=== PATIENT | male | born 1960 | race Caucasian/White ===

== ENCOUNTER → 2019-02-05 | Outpatient (CLI) | payer BC, OTHER ==
[2019-02-05 07:16] LABS: HEMATOCRIT 40.3 % (42.0-52.0); MCH 30.8 pg (26.0-34.0); MCHC 34.8 g/dL (28.0-37.0); MCV 88.6 fL (80.0-100.0); RBC 4.55 mil/uL (4.50-6.00); RDW 13.2 % (10.5-14.5); WBC 7.2 thou/uL (4.0-11.0)
[2019-02-05 07:30] LABS: ALBUMIN 3.6 g/dL (3.4-5.0); CALCIUM 9.1 mg/dL (8.5-10.1); CREATININE 0.9 mg/dL (0.7-1.3); POTASSIUM 3.5 mmol/L (3.5-5.1); TOTAL BILIRUBIN 0.5 mg/dL (<0.1-1.0); TOTAL PROTEIN 6.6 g/dL (6.4-8.2)
== END ==
LOC: CAT 06:47
PROVIDERS: Internal Medicine Cardiovascular Disease
DX: I48.91 Unspecified atrial fibrillation (principal); I25.10 Atherosclerotic heart disease of native coronary artery without angina pectoris; M47.814 Spondylosis without myelopathy or radiculopathy, thoracic region; Z90.49 Acquired absence of other specified parts of digestive tract

== ENCOUNTER → 2019-02-16 | Outpatient (CLI) | payer BC, OTHER ==
[~2019-02-16] VITALS: Ht 182.9 cm; Wt 99.8 kg
[~2019-02-16] MED LIST: ACCUNEB SO1.25 MG/1 INH; ADULT ASPIRIN R81 MG PO; CARDIZEM CD120 MG PO; CRESTOR20 MG PO; ELIQUIS5 MG PO; FLOMAX0.4 MG PO; GLUCOSAMINE HC500 MG; LOSARTAN-HCTZ1 EAC1 PO; METFORMIN HCL500 MG PO; OZEMPIC0.25 MG/0. INJECTION; PROAIR HFA8.5 GM INH; REVATIO20 MG PO; SYNTHROID100 MC1 PO; TESTOSTERONE2.5 GM TOP; VITAMIN D35000 UNIT PO
[2019-02-16 07:58] VITALS: BP 106/78
--- NOTE | 2019-02-16 09:20 | TEE ---
[facility] [address] [address] TRANSESOPHAGEAL ECHOCARDIOGRAM Name: DIONNA ORTEGA Room #: REG CL Ana#: [id number] ������������� Admission: 02/16/19 ������������� Attend Phys: Romeo Tierney Discharge: ��� ������������� ��� Date of : 62 Date of Service: 02/16/19 0919 �� Report #: [id number] �������� ��������������������������������������������[id number] THIS REPORT FOR: //name// APPROVED REPORT Study performed: 02/16/2019 08:51:04 EXAM: Transesophageal Echocardiogram Patient Location: Out-Patient Status: routine BSA: 2.22 HR: 55 bpm BP: 100/62 mmHg Rhythm: Atrial Fibrillation Other Information Study Quality: Good Indications Atrial Fibrillation Echo Enhancing Agent Indication: Rule out Shunt Agent(s) / Amount(s) Used: Agitated Saline 6 cc Procedure After obtaining informed consent, patient underwent transesophageal echo in the [employer]. Type of Sedation : Conscious Sedation Sedation was administered by Shira Chance RN. Sedation was achieved intravenously with: Versed (4) Fentanyl (100) Transesophageal probe was inserted and advanced into esophagus without difficulty by Alvino Phelps MD. The GARRET was performed without complications. Throughout the procedure, the blood pressure, pulse oximetry, cardiac rhythm, and rate were monitored. The patient tolerated the procedure without adverse effects. Recovery from conscious sedation was uneventful and vital signs were stable. Left Ventricle The left ventricle is normal size. There is normal LV segmental wall motion. There is normal left ventricular wall thickness. Left ventricular systolic function is normal. LVEF is 55-60%. [facility] [address] [place] [address] TRANSESOPHAGEAL ECHOCARDIOGRAM Name: DIONNA ORTEGA [place] Room #: REG CL [place].#: [id number] ������������� Admission: 02/16/19 ������������� Attend Phys: Romeo Tierney Discharge: ��� ������������� ��� Date of : 62 Date of Service: 02/16/19 0919 �� Report #: [id number] �������� ��������������������������������������������[id number] Right Ventricle The right ventricle is normal size. The right ventricular systolic function is normal. Atria The left atrium size is normal. No thrombus is visualized in the left atrium or appendage. No shunting noted by contrast bubble injection. The right atrium size is normal. Aortic Valve The aortic valve is normal in structure. No aortic regurgitation is present. There is no aortic valvular stenosis. Mitral Valve The mitral valve is normal in structure. Mild mitral regurgitation. No evidence of mitral valve stenosis. Tricuspid Valve The tricuspid valve is normal in structure. Trace tricuspid regurgitation. Pulmonic Valve The pulmonary valve is normal in structure. There is no pulmonic valvular regurgitation. Great Vessels The aortic root is normal in size. The ascending aorta is normal in size. IVC is normal in size and collapses >50% with inspiration. Pericardium There is no pericardial effusion. <Conclusion> Left ventricular systolic function is normal. There is normal LV segmental wall motion. LVEF is 55-60%. No thrombus is visualized in the left atrium or appendage. No shunting noted by contrast bubble injection. The aortic valve is normal in structure. No aortic valvular stenosis or insufficiency. The mitral valve is normal in structure. Mild mitral regurgitation. [facility] [address] [place] [address] TRANSESOPHAGEAL ECHOCARDIOGRAM Name: DIONNA ORTEGA [place] Room #: [facility] [id number] ������������� Admission: 02/16/19 ������������� Attend Phys: Romeo Tierney Discharge: ��� ������������� ��� Date of : 62 Date of Service: 02/16/19918 �� Report #: [id number] �������� ��������������������������������������������[id number] Normal aorta There is no pericardial effusion. ��������������������������������������������� <ELECTRONICALLY SIGNED> ���������������������������������������� By: Alvino Phelps MD, [facility] ��������������������������������������������� 02/16/19918 8 8 Alvino Phelps MD, [facility] /INF
== END | disposition home or self-care (01) ==
LOC: CV 07:16 → CATH 07:16
DX: I34.0 Nonrheumatic mitral (valve) insufficiency (principal); I48.91 Unspecified atrial fibrillation; I10 Essential (primary) hypertension; N40.0 Benign prostatic hyperplasia without lower urinary tract symptoms; E11.9 Type 2 diabetes mellitus without complications; E78.5 Hyperlipidemia, unspecified; Z90.49 Acquired absence of other specified parts of digestive tract; Z98.890 Other specified postprocedural states; Z79.899 Other long term (current) drug therapy; Z79.01 Long term (current) use of anticoagulants; Z79.82 Long term (current) use of aspirin

== ENCOUNTER 2019-02-17 06:34 | Observation (INO) | payer BC, OTHER ==
[~2019-02-17] VITALS: Ht 182.9 cm; Wt 99.8 kg
--- NOTE | ~2019-02-17 | P ---
[facility] [place] [address] PROCEDURE REPORT Name: DIONNA ORTEGA Room #: 204-P [facility] Saloni MVarinder#: [id number] Admission: 02/17/19 ������������������ Attend Phys: Romeo Tierney MD Discharge: 02/18/19 ������������������ Date of : 62 Report #: [id number] THIS REPORT FOR: //name// CC: Rose Tierney DATE OF SERVICE: 02/18/2019 PREOPERATIVE DIAGNOSIS: Paroxysmal atrial fibrillation. POSTOPERATIVE DIAGNOSIS: Paroxysmal atrial fibrillation. PROCEDURES PERFORMED: 1. Atrial fibrillation ablation, CPT code 56970. 2. Program stimulation and pacing after IV drug infusion, CPT code 24465. 3. 3D mapping EP, CPT code 40238. 4. Intracardiac echo, CPT code 79046. ANESTHESIA: The patient underwent general anesthesia with no anesthesia related complications. DESCRIPTION OF PROCEDURE: The patient underwent informed consent. We discussed the details of the procedure including the risks, which include but not limited to bleeding, vascular damage, cardiac perforation as well as stroke or [place]. He understood these risks and is willing to proceed. The patient was brought to the EP laboratory in a fasting and sedated state, prepped and draped in a sterile fashion. I injected lidocaine at the right groin region, obtained access to the right femoral vein x 3, placing an 8, 9 and 7-Rwandan short sheath using the modified Seldinger technique. Next, Lasso catheter was placed into the right atrium and detailed 3D geometry of the right atrium was created. Next, an ICE catheter and a CS catheter was placed into the right atrium and the decapolar catheter was placed into the coronary sinus. Next, using intracardiac ultrasound a detailed 3D geometry of the left atrium was created and this was merged with the CT scan. Next, the patient was systemically heparinized and a transseptal was performed using an SL1 sheath and a [place] needle. This was straightforward. I then exchanged the SL1 sheath for the cryo sheath and placed the cryoballoon into the left atrium. Next, I performed two 4-minute freezes of the left superior pulmonary vein. During the second freeze, the vein isolated within 60 seconds. I then turned my attention to the left inferior pulmonary vein. I performed both 4-minute freeze followed by a 3-minute freeze. This vein isolated during the first freeze within 56 seconds. I turned my attention to the right-sided veins. When I was isolating these veins, phrenic nerve pacing was performed from the decapolar catheter placed in the SVC. In this vein, I could not see the signals therefore I performed a 4-minute freeze followed by 2-minute freeze and this vein was [address] [address] PROCEDURE REPORT Name: DIONNA ORTEGA [place] Room #: 204-P [facility] Perez#: [id number] Admission: 02/17/19 ������������������ Attend Phys: Romeo Tierney MD Discharge: 02/18/19 ������������������ Date of : 62 Report #: [id number] isolated. The right inferior pulmonary vein was slightly more complex in its positioning. It had two branches, one which I was able to engage and there was a lower branch that I could never clearly engage. I performed a 4-minute freeze followed by 2-minute freeze and it appeared that the veins had isolated. I did spend some time trying to get my cryoballoon into this inferior branch. It did appear that on ice that I had overlapped this with the balloon, but I could not get the Achieve wire to clearly determine that this had been isolated. I did rechecked all the other veins and these were isolated and then I attempted to get into this lower branch, but then lost transseptal access. At this point, I decided that no further attempts at this vessel would be performed. Post-ablation a basic EP study was performed. Atrial burst pacing was performed and AV block was noted at 320 milliseconds. AV hayden ERP was noted at 320 milliseconds at a [address] cycle length. Isoproterenol was then initiated and AV block was noted 250 milliseconds and AV hayden ERP is noted 240 milliseconds at a [address] cycle length. As such, no other inducible arrhythmias were noted. As such, the procedure was concluded. The patient received systemic protamine and once ACT was in acceptable range, all catheters and sheaths were pulled and hemostasis was obtained. CONCLUSIONS: Successful AFib ablation with isolation of the pulmonary veins. ��������������������������������������������� ���������������������������������������� By: ��������������������������������������������� 1209 1110 Romeo Tierney MD /nt
[2019-02-17 06:53] VITALS: BP 122/78
[2019-02-17 06:58] LABS: ABSOLUTE NEUTROPHILS 3.6 thou/uL (1.4-8.2); BASOPHILS 1.1 % (0.0-2.0); EOSINOPHILS 2.1 % (0.0-3.0); HEMATOCRIT 39.5 % (42.0-52.0); HEMOGLOBIN 13.6 gm/dL (14.0-18.0); MCH 30.7 pg (26.0-34.0); MCHC 34.4 g/dL (28.0-37.0); MCV 89.3 fL (80.0-100.0); MONOCYTES 10.1 % (1.0-8.0); PLATELET COUNT 219 thou/uL (150-400); POLYS 55.7 % (36.0-66.0); RBC 4.42 mil/uL (4.50-6.00); RDW 13.3 % (10.5-14.5); WBC 6.5 thou/uL (4.0-11.0)
[2019-02-17 07:11] LABS: APTT 27.5 Seconds (24.5-32.8)
[2019-02-17 07:20] LABS: CALCIUM 9.4 mg/dL (8.5-10.1); POTASSIUM 3.7 mmol/L (3.5-5.1)
[2019-02-17 07:26] LABS: ALBUMIN 3.5 g/dL (3.4-5.0); TOTAL BILIRUBIN 0.4 mg/dL (<0.1-1.0)
--- NOTE | 2019-02-17 18:21 | NUR ---
[age] YEAR OLD MALE ADMITTED TO CCU ROOM 204 UNDER THE CARE OF DR. STREET. PT ADMITTED TO UNIT AFTER CATH/AFIB ABLATION. PT ALERT AND ORIENTED TIMES FOUR. VSS, 98%RA, SR ON TELE, STARR TO DD. PT DENIES PAIN/SOA. RIGHT GROIN SITE SOFT, NO DRAINAGE NOTED. PT FAMILY AT [facility]. WILL CONTINUE TO MONITOR.
[2019-02-17 20:10] VITALS: BP 137/69
[2019-02-18 00:59] VITALS: BP 114/53
--- NOTE | 2019-02-18 02:19 | NUR ---
ASSESSMENTS CHARTED. PATIENT OFF BEDREST AT START OF SHIFT. RO WAS DC'D AT SAME TIME. RIGHT GROIN SITE SOFT, SMALL BLOOD STAIN ON BANDAGE, EDGES MARKED, NO CHANGE AFTER GETTING UP. UP AT YESY IN ROOM. PLAN OF CARE TO GO HOME IN MORNING.
[2019-02-18 04:45] VITALS: BP 121/59
[2019-02-18 08:14] VITALS: BP 120/72
[2019-02-18 09:24] VITALS: BP 120/72
--- NOTE | 2019-02-18 09:53 | NUR ---
ASSUMED CARE OF PT AT SHIFT CHANGE. ASSESSMENT CHARTED. MEDS GIVEN PER NOV. PT ALERT AND ORIENTED, VSS, NO C/O PAIN, DENIES CHEST PAIN/SOB. FAMILY AT BEDSIDE. RIGHT GROIN SITE CDI, MINIMAL DRIED DRAINAGE, NO HEMATOMA. DRESSING REMOVED PER CARDIAC OBSTETRICS GYN. DC ORDERS ACKNOWLEDGED AND IMPLEMETED. DC PAPERWORK DISCUSSED WITH PT. COMMUNICATES UNDERSTANDING. IV REMOVED, TELE DC'D. PT LEFT UNIT WITH ALL BELONGINGS ACCOMPANIED BY FAMILY AT APPROX 0951.
== END 2019-02-18 09:51 | disposition home or self-care (01) ==
LOC: CATH 06:34 → 2N 16:42 → ENTRNSPT 02-18 09:40 → EDTRNSPTSTS 02-18 09:42 → 2N 02-18 09:51
PROVIDERS: ADMIT Internal Medicine Cardiovascular Disease
DX: I48.0 Paroxysmal atrial fibrillation (principal); E11.9 Type 2 diabetes mellitus without complications; I10 Essential (primary) hypertension; Z90.49 Acquired absence of other specified parts of digestive tract; Z79.899 Other long term (current) drug therapy; Z98.890 Other specified postprocedural states
CPT/HCPCS: 62110; 62900; 65020; 65040; 70005

== ENCOUNTER → 2019-04-16 | Outpatient (CLI) | payer OTHER | LOC: CAT 14:15 | DX: Z13.6 Encounter for screening for cardiovascular disorders (principal); E78.00 Pure hypercholesterolemia, unspecified; I25.10 Atherosclerotic heart disease of native coronary artery without angina pectoris ==

== ENCOUNTER → 2019-04-30 | Outpatient (CLI) | payer BC, OTHER ==
--- NOTE | 2019-05-03 10:21 | EXE ---
[facility] [address] [address] STRESS ECHOCARDIOGRAM Name: DIONNA ORTEGA Room #: REG CL Ana#: [id number] Admission: 04/30/19 Attend Phys: Romeo Tierney Discharge: Date of : 62 Date of Service: 05/03/19 1020 Report #: [id number] THIS REPORT FOR: //name// APPROVED REPORT Study performed: 04/30/2019 14:12:43 Exam: Stress Echocardiogram Indication: Atrial Fibrillation, Hypertension Patient Location: Out-Patient Stress Nurse: Lynette MORGAN Room #: Echo lab 2 Status: routine Ht: 6 ft 0 in HR: 65 bpm BP: 122/82 mmHg Rhythm: NSR Medical History Medical History: Atrial Fibrillation, Diabetes, HTN Cardiac Risk Factors: HTN, DM Previous Cardiac Procedures: Atrial fibrillation ablation Exercise History: Indeterminate Procedure The patient underwent an Exercise Stress Test using the Isidoro Protocol. Blood pressure, heart rate, and EKG were monitored. An Echocardiogram was performed by behavioral technician in four stages in quad fashion. At peak stress, four selected images were obtained and placed side by side with resting images for comparison. Stress Test Details Stress Test: Exercise stress testing was performed using a Isidoro protocol. HR Resting HR: 65 bpm Max Heart Rate (APMHR): 162 bpm Max HR Achieved: 155 bpm Target HR (85% APMHR): 137 bpm % of APMHR: 95 Recovery HR: 91 bpm HR response to stress: Normal HR response to stress BP Resting BP: 122/82 mmHg Max BP: 164/78 mmHg Recovery BP: 120/70 mmHg [facility] [address] [place] [address] STRESS ECHOCARDIOGRAM Name: ORTEGADIONNA MONTERROSO Room #: REG CL Ana#: [id number] Admission: 04/30/19 Attend Phys: [facility] Discharge: Date of : 62 Date of Service: 05/03/19 1020 Report #: [id number] BP response to stress: Normal blood pressure response to stress. ECG Resting ECG: Sinus Rhythm Stress ECG: Sinus Tachycardia Arrhythmia: None Recovery ECG: Sinus Rhythm Clinical Reason for Termination: Maximal effort Exercise duration: 10 min sec Highest Stage Achieved: Stage 4: 4.2 mph at 16% grade. Exercise capacity: 13.3 METs Overall Exercise Capacity for Age: Good Stress ECG Conclusion 1. Subjectively negative for ischemia 2. Elective cartographic a negative for ischemia 3. Satisfactory functional capacity Pre-Stress Echo The resting Echocardiogram showed normal left ventricular contractility with an estimated Ejection Fraction of about >55%. The resting echocardiogram demonstrated normal wall motion in all wall segments. Post-Stress Echo The stress Echocardiogram showed normal left ventricular contractility with an estimated Ejection Fraction of about >70%. Compared to rest, there were no stress-induced wall motion abnormalities. Conclusion Clinical Response: Non-ischemic Exercise Capacity: Superior Stress ECG Response: Non-ischemic Stress Echo Images: Non-ischemic 1. Low risk study Other Information Study Quality: Adequate [facility] [address] [place] [address] STRESS ECHOCARDIOGRAM Name: DIONNA ORTEGA [place] Room #: REG Ana#: [id number] Admission: 04/30/19 Attend Phys: Romeo Tierney Discharge: Date of : 62 Date of Service: 05/03/19 1020 Report #: [id number] <Conclusion> 1. Low risk study <ELECTRONICALLY SIGNED> By: Wade Meyer MD 05/03/19 1020 1020 1020 Wade Meyer MD /INF
== END ==
LOC: CV 13:46
DX: I48.91 Unspecified atrial fibrillation (principal); E78.2 Mixed hyperlipidemia; I10 Essential (primary) hypertension; E11.9 Type 2 diabetes mellitus without complications

== ENCOUNTER → 2019-05-07 | Outpatient (CLI) | payer BC, OTHER ==
--- NOTE | ~2019-05-07 | P ---
[facility] [place] [address] PROCEDURE REPORT Name: DIONNA ORTEGA Room #: REG JOVITA Perez#: [id number] Admission: 05/07/19 Attend Phys: Conrado Yousif Discharge: Date of : 62 Report #: [id number] THIS REPORT FOR: //name// CC: Rose Tierney PROCEDURE: Implantable loop recorder. PREOPERATIVE DIAGNOSIS: Palpitations. POSTOPERATIVE DIAGNOSIS: Palpitations. DESCRIPTION OF PROCEDURE: The patient underwent informed consent. He was prepped and draped in a sterile fashion. I injected lidocaine at the incision site. Incision was made and the device was injected under the skin. A single layer of suture was delivered under the skin. Surgical glue was placed to outer skin layer. There were no procedure related complications. The implanted device was a [employer] serial #[id number]. The R waves were 0.6 millivolts. CONCLUSIONS: Successful implantation of implantable loop recorder. By: 1414 1456 Romeo Tierney MD /nt
[2019-05-07 12:12] VITALS: BP 111/70
== END | disposition home or self-care (01) ==
LOC: CATH 11:57
DX: R00.2 Palpitations (principal); Z98.890 Other specified postprocedural states; Z79.899 Other long term (current) drug therapy; Z79.82 Long term (current) use of aspirin

== ENCOUNTER 2019-07-14 06:43 | Observation (INO) | payer BC, OTHER ==
[~2019-07-14] VITALS: Ht 182.9 cm; Wt 104.3 kg
[2019-07-14 07:10] VITALS: BP 139/77
[2019-07-14] MEDS ORDERED: LOTRISONE CREAM15 GM TOP (07:24)
[2019-07-14] MEDS ORDERED: CITRATE OF MAG296 M1 PO (07:28)
[2019-07-14 07:29] LABS: ABSOLUTE NEUTROPHILS 4.3 thou/uL (1.4-8.2); BASOPHILS 1.3 % (0.0-2.0); EOSINOPHILS 2.4 % (0.0-3.0); HEMATOCRIT 42.3 % (42.0-52.0); HEMOGLOBIN 14.1 gm/dL (14.0-18.0); LYMPHOCYTES 26.6 % (24.0-44.0); MCH 30.3 pg (26.0-34.0); MCHC 33.4 g/dL (28.0-37.0); MCV 90.8 fL (80.0-100.0); MONOCYTES 10.1 % (1.0-8.0); PLATELET COUNT 257 thou/uL (150-400); POLYS 59.6 % (36.0-66.0); RBC 4.65 mil/uL (4.50-6.00); RDW 13.2 % (10.5-14.5); WBC 7.2 thou/uL (4.0-11.0)
[2019-07-14] MEDS ORDERED: OZEMPIC0.25 MG/0. SUBQ (07:37)
[2019-07-14] MEDS ORDERED: CO Q-1030 MG PO (07:39)
[2019-07-14 07:41] LABS: APTT 25.9 Seconds (24.5-32.8); CALCIUM 9.1 mg/dL (8.5-10.1); CREATININE 0.9 mg/dL (0.7-1.3); POTASSIUM 3.8 mmol/L (3.5-5.1); PROTIME 9.8 Seconds (9.3-11.4)
[2019-07-14 07:47] LABS: ALBUMIN 3.6 g/dL (3.4-5.0); TOTAL BILIRUBIN 0.3 mg/dL (<0.1-1.0); TOTAL PROTEIN 7.2 g/dL (6.4-8.2)
--- NOTE | 2019-07-14 15:30 | NUR ---
ORIENTED TO ROOM AND UNIT. BED LOW AND LOCKED, SIDE RAILS UPX3, CALL LIGHT IN REACH. TELE APPLIED. PT HAS SIGNED ALL ADMISSION DOCUMENTS. WILL LAY FLAT FOR [address] DRAINING CLEAR YELLOW URINE. WILL CONTINUE TO ASSESS.
--- NOTE | 2019-07-14 19:06 | NUR ---
[employer] FLOW SHEET IS IN CHART
[2019-07-14 21:48] VITALS: BP 139/82
[2019-07-15 00:40] VITALS: BP 104/68
--- NOTE | 2019-07-15 04:09 | NUR ---
PT S/P AFIB ABLATION. ALERT AND ORIENTED. NO PALPITATION, CHEST PAIN, OR SOB. SR RHYTHM MAINTAINED ON THE MONITOR.(EXTENSIVE INTERFERENCES WITH TELE MONITOR) PT WAS OFF BEDREST AT 1999, RO DC'D , PT VOIDING OKAY IN THE URINAL. PT REPORTS NOT USING FLOMAX ALMOST 6mo AGO AND HAS HAD NO ISSUE WITH URINARY RETENTION. TYLENOL GIVEN X1, CHEST SORENESS. GROIN SIGHT, DRY AND INTACT. DRY BLOOD PRESENT, NO HEMATOMA. NO FURTHER C/O. WILL CONTINUE TO FOLLOW PLAN OF CARE.
[2019-07-15 05:00] VITALS: BP 110/70
[2019-07-15 08:55] VITALS: BP 129/83
[2019-07-15] MEDS ORDERED: TAMBOCOR 100 M100 M1 PO (09:08)
[2019-07-15 09:48] VITALS: BP 110/70
--- NOTE | 2019-07-15 13:03 | NUR ---
AAOX4. AFFECT BRIGHT. ANXIOUS FOR DISCHARGE. DR. STREET HERE; DISCHARGING. COMPLETE DISCHARGE AND MEDICATION INSTRUCTIONS GIVEN. TELE AND SL DISCONTINUED. FROM UNIT BY WITH VOLUNTEER TO PRIVATE VEHICLE.
--- NOTE | 2019-07-29 12:29 | P ---
[facility] [place] [address] PROCEDURE REPORT Name: DIONNA ORTEGA Room #: 216-P [facility] Saloni M.R.#: [id number] Admission: 07/14/19 Attend Phys: Romeo Tierney MD Discharge: 07/15/19 Date of : 62 Report #: [id number] THIS REPORT FOR: //name// CC: Rose Tierney PREOPERATIVE DIAGNOSES: 1. Atrial fibrillation. 2. Atrial flutter. POSTOPERATIVE DIAGNOSES: 1. Atrial fibrillation. 2. Atrial flutter. PROCEDURES PERFORMED: 1. Atrial fibrillation ablation, CPT code 38664. 2. 3D mapping, CPT code 41599. 3. Intracardiac echo, CPT code 80625. 4. Second pathway ablation, CPT code 44211. ANESTHESIA: The patient underwent general anesthesia with no anesthesia related complications. DESCRIPTION OF PROCEDURE: The patient underwent informed consent. We discussed the details of the procedure including the risks, which include but not limited to bleeding, vascular damage, cardiac perforation as well as stroke or [place]. He understood these risks and is willing to proceed. The patient was brought to the EP laboratory in fasting and sedated state, prepped and draped in a sterile fashion. At baseline, the patient was in sinus rhythm with a sinus cycle length of 1260 milliseconds, CA interval 160 milliseconds, QRS duration 95 milliseconds, QT interval 490 milliseconds. Next, I obtained access to the bilateral femoral veins placing two 8-Monegasque short sheaths in the right femoral vein and a 7 and 9-Monegasque short sheath in the left femoral vein using the modified Seldinger technique. Next, under fluoroscopy, a decapolar catheter was placed easily in the coronary sinus. ICE catheter was placed into the right atrium. Of note on ICE, there was evidence of 2 left pulmonary veins and right superior pulmonary veins with 3 separate branches and a right inferior pulmonary vein with a very inferior and unusual takeoff. At the time of my last ablation, I spent a significant amount of time trying to get into this lower branch and I was unsuccessful at that time. CartoSound images were merged with the cardiac CT scan and the patient was then systemically heparinized and a transseptal was performed using an SL1 sheath and a [place] needle. The first site, I went transseptal was higher than I liked and I tried to advance my sheath into the left atrium unsuccessfully. I decided to pull out and I went slightly lower. I was in the mid third of the interatrial septum right across from the left-sided pulmonary veins. At this site, I still had [facility] [address] [place] [address] PROCEDURE REPORT Name: DIONNA ORTEGA [place] Room #: 216-P [facility] Saloni Perez#: [id number] Admission: 07/14/19 Attend Phys: Romeo Tierney MD Discharge: 07/15/19 Date of : 62 Report #: [id number] difficulty advancing my guidewire into the left-sided veins, but eventually I was able to get into the left inferior pulmonary vein. I attempted to advance my SL1 sheath into the left atrium and this was unsuccessful. I, therefore, used a [employer] Powerflex 6 mm x 4 cm balloon and dilated the interatrial septum. At this point, I could now advance the SL1 sheath into the left atrium. Using a Lasso catheter, I created a detailed 3D geometry of the left atrium, which showed that the left superior pulmonary vein had some small signals that appeared to be far field in nature. They appeared to be left atrial appendage signals. They would only capture when I would pace between 5 and 10 volts and again it would intermittently capture. At lower pacing outputs, there was no capture. The left inferior pulmonary vein was reconnected. The right superior pulmonary vein was isolated and of note, this right superior pulmonary vein had 3 separate branches. All 3 of the branches showed evidence of entrance and exit block. Again, he had this very unusual and very small right inferior vein. I was not certain if this was the true right inferior pulmonary vein or potentially just an inferior branch of the main right inferior pulmonary vein. As such, I prepped to perform a second transseptal. I attempted to obtain transseptal access via the initial transseptal site and I could not get my wire across. At this point given the difficulties with the transseptal, I decided that I would transition over to the cryoablation procedure as I already had a good transseptal site. Therefore, I exchanged my SL1 sheath for the cryo sheath. I did have some difficulties advancing the cryo sheath into the left atrium and did lose access so I did have to re-obtain transseptal access using my SL1 sheath again and then the second time, I was able to successfully advance the cryo sheath into the left atrium. I initially started by doing two 4-minute freezes in this left superior pulmonary vein. Again, I think these were likely far field left atrial appendage signals, but I decided to perform 2 freezes just in case. I then turned my attention to the left inferior pulmonary vein and I performed three 4-minute freezes. The vein isolated within 20 seconds of the first freeze, but the attempts were not very good ranging anywhere from -30 degrees to -35 degrees. However, post-ablation, this was clearly isolated as there was independent firing from this vessel. Also of note when I was evaluating the left superior pulmonary vein prior to isolation, there were bursts of atrial tachycardia that clearly did not conduct to the left atrium. I then turned my attention to the right superior pulmonary vein and all 3 of these branches were isolated. I then attempted to get into this small very inferior vessel that is either a branch of the right inferior pulmonary vein or it is the true right inferior vein. Again, I attempted to get into this for some time with the cryo sheath and again this could not be achieved. As such, I pulled my cryo balloon and sheath into the right atrium and I decided to proceed with atrial flutter ablation. ATRIAL FLUTTER ABLATION: Next, I removed the SL1 sheath in the right groin and exchanges for a ramp sheath and placed an 8-mm ablation catheter into the right atrium. Pre-ablation, the transisthmus conduction time was 75 milliseconds. I performed ablation at 70 kaufman, 60 degrees and performed a continuous drag [facility] [address] [place] [address] PROCEDURE REPORT Name: DIONNA ORTEGA Room #: 216-P [facility] Saloni Perez#: [id number] Admission: 07/14/19 Attend Phys: Romeo Tierney MD Discharge: 07/15/19 Date of : 62 Report #: [id number] lesion along the isthmus. Once I fell into the IVC, I came off. I then was going to perform additional ablation and I looked at the voltage along my previous line of ablation and it appeared that there were no significant signals. As such, we checked for bidirectional block and the transisthmus conduction time pacing either medial or lateral to the line was now 145 milliseconds. As such, the procedure was concluded. Using intracardiac ultrasound, I verified there was no pericardial effusion. Once the ACT was within acceptable range, catheters and sheaths were pulled and hemostasis was obtained. The patient awoke neurologically and hemodynamically intact. No complications and no significant bleeding. CONCLUSIONS: 1. Successful re-isolation of the left inferior pulmonary vein. 2. Successful atrial flutter ablation with evidence of bidirectional block. <ELECTRONICALLY SIGNED> By: Romeo Tierney MD 07/29/19 1229 1505 2252 Romeo Tierney MD /nt
--- NOTE | 2019-07-29 12:29 | D ---
[facility] [place] [address] [place] [address] DISCHARGE SUMMARY Name: DIONNA ORTEGA Room #: 216-P [facility] M.R.#: [id number] Admission: 07/14/19 Attend Phys: Romeo Tierney MD Discharge: 07/15/19 Date of : 62 Report #: [id number] THIS REPORT FOR: //name// CC: Rose Tierney PREOPERATIVE DIAGNOSES: 1. Atrial fibrillation. 2. Atrial flutter. HISTORY: The patient is a 59-year-old male with history of atrial fibrillation, atrial flutter, status post prior ablation. He has had clinical recurrence. As documented on his alarm security or surveillance monitor, he is here for repeat ablation. He underwent successful re-isolation of the left inferior pulmonary vein and atrial flutter ablation. There were no procedure related complications, although his transseptal was somewhat challenging during the procedure. HOSPITAL COURSE: He was monitored overnight and did well. He had no issues overnight. He denied any chest pain, shortness of breath, fevers or chills. He had some mild inspiratory chest pain, which is expected with the procedure. PHYSICAL EXAMINATION: GENERAL: No acute distress. HEART: Regular rate and rhythm. LUNGS: Clear to auscultation bilaterally. ABDOMEN: Soft, nontender. EXTREMITIES: No clubbing, cyanosis or edema. On telemetry, he remained in sinus rhythm. His vitals were stable. As such, he was deemed stable for discharge home and he will continue with his same home medications including anticoagulation and we will start him on flecainide 100 b.i.d., which we will continue for a period of 3 months. <ELECTRONICALLY SIGNED> By: Romeo Tierney MD 07/29/19 1229 [id number] Romeo Tierney MD /nt
== END 2019-07-15 11:42 | disposition home or self-care (01) ==
LOC: CATH 06:43 → 2N 15:03 → ENTRNSPT 07-15 11:33 → EDTRNSPTSTS 07-15 11:35 → 2N 07-15 11:42
PROVIDERS: ADMIT Internal Medicine Cardiovascular Disease
DX: I48.91 Unspecified atrial fibrillation (principal); I48.92 Unspecified atrial flutter
CPT/HCPCS: 62110; 62900; 65020; 65040; 70005

== ENCOUNTER → 2019-08-02 | Outpatient (CLI) | payer BC, OTHER ==
[~2019-08-02] MED LIST changes: +CITRATE OF MAG296 M1 PO; +CO Q-1030 MG PO; +LOTRISONE CREAM15 GM TOP; +OZEMPIC0.25 MG/0. SUBQ; +TAMBOCOR 100 M100 M1 PO
== END ==
LOC: ULTRA 13:47
DX: M79.602 Pain in left arm (principal); M79.89 Other specified soft tissue disorders

== ENCOUNTER → 2021-02-05 | Outpatient (CLI) | payer BC, OTHER | LOC: SJCVCIMAG 08:54 | PROVIDERS: ATTEND Internal Medicine Cardiovascular Disease | DX: I48.91 Unspecified atrial fibrillation (principal); E78.5 Hyperlipidemia, unspecified; E11.9 Type 2 diabetes mellitus without complications; I10 Essential (primary) hypertension; Z79.899 Other long term (current) drug therapy ==

== ENCOUNTER → 2021-10-02 | Outpatient (CLI) | payer BC, OTHER ==
--- NOTE | ~2021-10-02 | P ---
[facility] [address] [place] [address] PROCEDURE REPORT Name: DIONNA ORTEGA Room #: REG LINDSEYBrian Ya.#: [id number] Admission: 10/02/21 Attend Phys: Romeo Tierney MD Discharge: Date of : 62 Report #: [id number] THIS REPORT FOR: cc: Rose Arreola MD, Constance M. MD Couchonnal, Luis F. MD ~ DATE OF SERVICE: 10/02/2021 PROCEDURE: Implantable loop recorder. PREOPERATIVE DIAGNOSIS: Atrial fibrillation. POSTOPERATIVE DIAGNOSIS: Atrial fibrillation. PROCEDURES PERFORMED: Loop recorder removal and loop recorder insertion. DESCRIPTION OF PROCEDURE: The patient underwent informed consent. He was prepped in a standard fashion. I injected lidocaine at the incision site. Incision was made. The old device was removed and the new device was injected, tested and found to be functioning normally. Single suture was performed and a dressing was placed. There were no procedure related complications. The newly implanted device was [employer] model number LNQ11, serial number [id number]. CONCLUSION: Successful removal and replacement of an implantable loop recorder. By: [id number] Romeo Tierney MD /nt
[2021-10-02 13:04] VITALS: BP 127/67
== END | disposition home or self-care (01) ==
LOC: CATH 07:49
PROVIDERS: ATTEND Internal Medicine Cardiovascular Disease
DX: I48.91 Unspecified atrial fibrillation (principal); Z79.899 Other long term (current) drug therapy; Z79.01 Long term (current) use of anticoagulants